=== PATIENT | female | born 1960 | race Caucasian/White ===

== ENCOUNTER 2017-03-04 01:32 | Emergency (ER) | payer OTHER ==
--- NOTE | 2017-03-04 01:52 | EDM.PDOC ---
ED HPI GENERAL MEDICAL PROBLEM - General Chief Complaint: Trauma Stated Complaint: FELL AT HOME Time Seen by Provider: 03/04/17 01:40 - History of Present Illness INITIAL COMMENTS - FREE TEXT/NARRATIVE: HISTORY AND PHYSICAL: History of present illness: Patient 56-year-old female presents status post fall down a flight of stairs this occurred with light was out she was given to go downstairs to go to bathroom she complains of mild headache neck pain left shoulder pain left knee pain and left toe pain she denies loss of consciousness he denies any chest or abdominal pain or trauma denies palpitations shortness of breath or other concern. Review of systems: As per history of present illness and below otherwise all systems reviewed and negative. Past medical history: As per history of present illness and as reviewed below otherwise noncontributory. Surgical history: As per history of present illness and as reviewed below otherwise noncontributory. Social history: No reported history of drug or alcohol abuse. Family history: As per history of present illness and as reviewed below otherwise noncontributory. Physical exam: HEENT: Atraumatic, normocephalic, pupils reactive, negative for conjunctival pallor or scleral icterus, mucous membranes moist, throat clear, c-collar in place trachea midline Lungs: Clear to auscultation, breath sounds equal bilaterally, chest nontender. Heart: S1S2, regular, negative for clicks, rubs, or JVD. Abdomen: Soft, nondistended, nontender. Negative for masses or hepatosplenomegaly. Negative for costovertebral tenderness. Pelvis: Stable nontender. Genitourinary: Deferred. Rectal: Deferred. Extremities: Patient has abrasion contusion to her left knee with mild tenderness no gross deformity joint is grossly stable left foot is without any gross deformities or point tenderness either left shoulder some mild tenderness over lateral deltoid region is no gross deformity neurovascular exam in [facility] are unremarkable throughout Neuro: Awake, alert, oriented. Cranial nerves II through XII unremarkable. Cerebellum unremarkable. Motor and sensory unremarkable throughout. Exam nonfocal. Diagnostics: CT brain C-spine x-ray left shoulder thoracic spine chest pelvis left knee and left foot Therapeutics: To be determined Impression: #1 observation status post fall #2 multiple blunt trauma with multiple abrasions /contusions #3 cervical strain #4 left shoulder injury #5 left knee/foot injury Definitive disposition and diagnosis as appropriate pending reevaluation and review of above. left side of the body Pain Score (Numeric/FACES): 9 - Related Data Allergies Allergy/AdvReac Type Severity Reaction Status Date / Time erythromycin base Allergy Vomiting Verified 03/04/17 01:39 latex Allergy Blisters Verified 03/04/17 01:39 pregabalin [From Lyrica] Allergy Vomiting Verified 03/04/17 01:39 tramadol Allergy Dizziness Verified 03/04/17 01:39 Home Meds: Home Meds DULoxetine [Cymbalta] 60 mg PO DAILY 07/21/14 [History] Estrogens,Conj.,Synthetic B [Enjuvia] 1 tab PO DAILY 07/21/14 [History] fentaNYL [Fentanyl] 1 patch TRDERM Q2D 07/21/14 [History] Estradiol [Climara] 1 patch TOP ASDIRECTED 03/26/15 [History] Hydrocodone/Acetaminophen [Hydrocodon-Acetaminophn 10-325] 1 tab PO Q6H [History] Progesterone,Micronized [Progesterone] 1 tab PO DAILY 03/26/15 [History] Past Medical History Other Gastrointestinal History: Constipation past 2 months - Past Surgical History Other Female Surgeries/Procedures: Draining of ovarian cysts, vaginal approach bilaterally Social & Family History - Tobacco Use Smoking Status *Q: Never Smoker Second Hand Smoke Exposure: No - Alcohol Use Days Per Week of Alcohol Use: 0 - Recreational Drug Use Recreational Drug Use: No Drug Use in Last 12 Months: No Review of Systems - Review of Systems Review Of Systems: ROS reveals no pertinent complaints other than HPI. ED EXAM, GENERAL - Physical Exam Exam: See Below (See dictation) Course - Vital Signs Last Recorded V/S: Last Vital Signs Temp 36.5 C 03/04/17 04:22 Pulse 61 03/04/17 04:22 Resp 18 03/04/17 04:22 BP 115/54 L 03/04/17 04:22 Pulse Ox 99 03/04/17 04:22 - Orders/Labs/Meds Orders: Active Orders 24 hr Category Date Time Status C-Spine [Cervical Spine wo Cont] [CT] Stat Exams 03/04/17 01:47 Taken Chest 2V [CR] Stat Exams 03/04/17 01:48 Taken Foot 2V Lt [CR] Stat Exams 03/04/17 01:48 Taken Head wo Cont [CT] Stat Exams 03/04/17 01:53 Taken Knee 1V or 2V Lt [CR] Stat Exams 03/04/17 01:48 Taken Pelvis 1V or 2V [CR] Stat Exams 03/04/17 01:48 Taken Shoulder Comp Lt [CR] Stat Exams 03/04/17 01:48 Taken Thoracic Spine 2V [CR] Stat Exams 03/04/17 01:48 Taken Meds: Medications Discontinued Medications Generic Name Dose Route Start Last Admin Trade Name Lavonne PRN Reason Stop Dose Admin Ketorolac Tromethamine 60 mg 03/04/17 03:29 03/04/17 03:34 Toradol IM 03/04/17 03:30 60 mg ONETIME ONE Administration Departure - Departure Time of Disposition: 05:25 Disposition: Home, Self-Care 01 Condition: Good Clinical Impression: Multiple trauma, Fall - Discharge Information Instructions: Contusion Referrals: PCP,None [Primary Care Provider] - Forms: ED Department Discharge Additional Instructions: The following information is given to patients seen in the emergency department who are being discharged to home. This information is to outline your options for follow-up care. We provide all patients seen in our emergency department with a follow-up referral. The need for follow-up, as well as the timing and circumstances, are variable depending upon the specifics of your emergency department visit. If you don't have a primary care physician on staff, we will provide you with a referral. We always advise you to contact your personal physician following an emergency department visit to inform them of the circumstance of the visit and for follow-up with them and/or the need for any referrals to a consulting specialist. The emergency department will also refer you to a specialist when appropriate. This referral assures that you have the opportunity for followup care with a specialist. All of these measure are taken in an effort to provide you with optimal care, which includes your followup. Under all circumstances we always encourage you to contact your private physician who remains a resource for coordinating your care. When calling for followup care, please make the office aware that this follow-up is from your recent emergency room visit. If for any reason you are refused follow-up, please contact the [facility] emergency department at and asked to speak to the emergency department charge nurse. Follow-up primary medical doctor 1-2 days Motrin/Tylenol as directed return as needed as discussed Care Plan Goals: tylenol or motrin for pain follow up with PCP cold compress - My Orders Last 24 Hours: My Active Orders 03/04/17 01:47 C-Spine [Cervical Spine wo Cont] [CT] Stat 03/04/17 01:48 Chest 2V [CR] Stat Foot 2V Lt [CR] Stat Knee 1V or 2V Lt [CR] Stat Pelvis 1V or 2V [CR] Stat Shoulder Comp Lt [CR] Stat Thoracic Spine 2V [CR] Stat 03/04/17 01:53 Head wo Cont [CT] Stat - Assessment/Plan Last 24 Hours: My Active Orders 03/04/17 01:47 C-Spine [Cervical Spine wo Cont] [CT] Stat 03/04/17 01:48 Chest 2V [CR] Stat Foot 2V Lt [CR] Stat Knee 1V or 2V Lt [CR] Stat Pelvis 1V or 2V [CR] Stat Shoulder Comp Lt [CR] Stat Thoracic Spine 2V [CR] Stat 03/04/17 01:53 Head wo Cont [CT] Stat
[2017-03-04] MEDS ORDERED: Ketorolac 60 MG/2 ML SDV IM ONE (03:29)
[2017-03-04 04:31] VITALS: BP 115/54
--- NOTE | 2017-03-05 16:00 | CT ---
EXAM DATE: 03/04/17 PATIENT'S AGE: 56 Patient: SHIKHA DUMONT Facility: [place], [place] Site . Site : 1960 Study: CT Head WO CONT [id number]/10/2017 2:36:34 AM Ordering Physician: Doctor Rdz Final Report: INDICATION: Fall down stairs TECHNIQUE: Head CT without contrast. COMPARISON: None FINDINGS: CSF spaces: Within normal limits for age. Brain parenchyma: The medellin-white junction is normal. No sign of mass, hemorrhage , or midline shift. Skull base and calvarium: The visualized paranasal sinuses and mastoid air cells demonstrate no acute or significant findings. The visualized orbits are grossly unremarkable. No skull fractures. IMPRESSION: No intracranial hemorrhage or skull fracture. Please note that all CT scans at this facility use dose modulation, iterative reconstruction, and/or weight-based dosing when appropriate to reduce radiation dose to as low as reasonably achievable. Dictated by Alice Bell MD @ Mar 04 2017 3:00AM (Electronic Signature) Report Signed by Proxy. CARLOS
--- NOTE | 2017-03-05 16:02 | CT ---
EXAM DATE: 03/04/17 PATIENT'S AGE: 56 Patient: SHIKHA DUMONT Facility: [place], [place] Site . Site : 1960 Study: CT Spine Cervical WO CONT [id number]/10/2017 2:36:53 AM Ordering Physician: Doctor Rdz Final Report: INDICATION: Fall down stairs TECHNIQUE: CT cervical spine without contrast. COMPARISON: None FINDINGS: Vertebral alignment: Alignment is normal. Vertebrae: There are no fractures or suspicious bony lesions. Discs and facet joints: There are mild multilevel degenerative disc and facet changes. Extraspinal findings: Paraspinous soft tissues are unremarkable. IMPRESSION: 1. No sign of acute injury. 2. Mild multilevel degenerative spondylosis. Please note that all CT scans at this facility use dose modulation, iterative reconstruction, and/or weight-based dosing when appropriate to reduce radiation dose to as low as reasonably achievable. Dictated by Alice Bell MD @ Mar 04 2017 3:05AM (Electronic Signature) Report Signed by Proxy. MTDD
--- NOTE | 2017-03-05 16:03 | CR ---
EXAM DATE: 03/04/17 PATIENT'S AGE: 56 Patient: SHIKHA DUMONT Facility: [place], [place] Site . Site : 1960 Study: XRay Pelvis [id number]/10/2017 2:45:20 AM Ordering Physician: Doctor Rdz Final Report: Indication: Fall down stairs Technique: Frontal view pelvis Comparison: None Findings: Bones: Alignment is normal. No fractures or bone lesions. Joint spaces: Unremarkable. Soft tissues: Unremarkable. Impression: Negative. Dictated by Alice Bell MD @ Mar 04 2017 3:06AM (Electronic Signature) Report Signed by Proxy. CARLOS
--- NOTE | 2017-03-05 16:04 | CR ---
EXAM DATE: 03/04/17 PATIENT'S AGE: 56 Patient: SHIKHA DUMONT Facility: [place], [place] Site . Site : 1960 Study: XRay Chest [id number]/10/2017 2:45:44 AM Ordering Physician: Doctor Rdz Final Report: INDICATION: Fall down stairs TECHNIQUE: Chest 2 views. COMPARISON: None FINDINGS: Cardiovascular and mediastinum: Heart size and vasculature are normal in caliber and appearance. Mediastinum is within normal limits. Lungs and pleural spaces: Lungs are clear. No sign of infiltrate or mass. No sign of pleural effusion. No pneumothorax. Bones and soft tissues: No significant findings. IMPRESSION: No sign of acute disease. Dictated by Alice Bell MD @ Mar 04 2017 3:06AM (Electronic Signature) Report Signed by Proxy. CARLOS
--- NOTE | 2017-03-05 16:05 | CR ---
EXAM DATE: 03/04/17 PATIENT'S AGE: 56 Patient: SHIKHA DUMONT Facility: [place], [place] Site . Site : 1960 Study: XRay Spine Thoracic [id number]/10/2017 2:46:05 AM Ordering Physician: Doctor Rdz Final Report: INDICATION: Fall down stairs TECHNIQUE: Thoracic spine 2 view. COMPARISON: None FINDINGS: Bones: Alignment is normal. No fractures or significant bone lesions. Joints: Mild multilevel degenerative changes. Soft tissues: Unremarkable. Surgical clips noted in the right upper quadrant. IMPRESSION: No thoracic spine fracture or subluxation. Dictated by Alice Bell MD @ Mar 04 2017 3:07AM (Electronic Signature) Report Signed by Proxy. CARLOS
--- NOTE | 2017-03-05 16:06 | CR ---
EXAM DATE: 03/04/17 PATIENT'S AGE: 56 Patient: SHIKHA DUMONT Facility: [place], [place] Site . Site : 1960 Study: XRay Knee Left [id number]/10/2017 2:46:30 AM Ordering Physician: Doctor Rdz Final Report: Indication: Fall down stairs, Technique: Two views left knee Comparison: None Findings: Bones: Alignment is normal. No fractures or bone lesions. Joint spaces: Unremarkable. Soft tissues: Unremarkable. Impression: Negative. Dictated by Alice Bell MD @ Mar 04 2017 3:09AM (Electronic Signature) Report Signed by Proxy. CARLOS
--- NOTE | 2017-03-05 16:08 | CR ---
EXAM DATE: 03/04/17 PATIENT'S AGE: 56 Patient: SHIKHA DUMONT Facility: [place], [place] Site . Site : 1960 Study: XRay Shoulder Left [id number]/10/2017 2:48:25 AM Ordering Physician: Juwan Steward Final Report: Indication: Fall down stairs Technique: Two views left shoulder Comparison: None Findings: Bones: Alignment is normal. No fractures or bone lesions. Joint spaces: Unremarkable. Soft tissues: Unremarkable. Impression: Negative. Dictated by Alice Bell MD @ Mar 04 2017 3:10AM (Electronic Signature) Report Signed by Proxy. CARLOS
--- NOTE | 2017-03-05 16:08 | CR ---
EXAM DATE: 03/04/17 PATIENT'S AGE: 56 Patient: SHIKHA DUMONT Facility: [place], [place] Site . Site : 1960 Study: XRay Extremity Left FOOT [id number]/10/2017 2:46:58 AM Ordering Physician: Doctor Rdz Final Report: Indication: Fall down stairs Technique: Two-view left foot. Comparison: None Findings: Bones: Alignment is normal. No fractures or bone lesions. There is a small posterior calcaneal enthesophyte. Joint spaces: Unremarkable. Soft tissues: Unremarkable. Impression: No acute abnormality. Dictated by Alice Bell MD @ Mar 04 2017 3:09AM (Electronic Signature) Report Signed by Proxy. CARLOS
== END 2017-03-04 04:22 | disposition home or self-care (01) ==
LOC: MW.ED 01:32
DX: S16.1XXA Strain of muscle, fascia and tendon at neck level, initial encounter (principal); S80.02XA Contusion of left knee, initial encounter; S49.92XA Unspecified injury of left shoulder and upper arm, initial encounter; Z88.1 Allergy status to other antibiotic agents; Z91.040 Latex allergy status; Z88.6 Allergy status to analgesic agent; Z88.8 Allergy status to other drugs, medicaments and biological substances; Z79.899 Other long term (current) drug therapy; W10.9XXA Fall (on) (from) unspecified stairs and steps, initial encounter
CPT/HCPCS: 70450; 71020; 72070; 72125; 72170; 73030; 73560; 73620; 96372; 99284; J1885; 99283

== ENCOUNTER 2022-10-09 09:43 | Emergency (ER) | payer BC ==
[2022-10-09] MEDS ORDERED: Sodium Chloride 0.9% 10 ML Syringe FLUSH PRN (09:48)
[2022-10-09] MEDS ORDERED: Sodium Chloride 0.9% 2.5 ML Syringe FLUSH PRN (09:48)
[2022-10-09] MEDS ORDERED: Morphine 2 MG/ML SYRINGE IVPUSH ONE (10:54)
[2022-10-09] MEDS ORDERED: Ondansetron 4 MG/2 ML SDV IVPUSH ONE (10:54)
[2022-10-09] MEDS ORDERED: Aspirin 81 MG Tab.Chew PO ONE (11:04)
[2022-10-09 11:58] LABS: CARBON DIOXIDE,CO2 27.1 mmol/L (21.0-32.0); POTASSIUM,K 4.1 mmol/L (3.5-5.1)
[2022-10-09 12:42] VITALS: BP 129/57; PULSE 57
== END 2022-10-09 12:45 | disposition home or self-care (01) ==
LOC: MW.ED 09:43
DX: R07.89 Other chest pain (principal); Z88.1 Allergy status to other antibiotic agents; Z91.040 Latex allergy status; Z88.5 Allergy status to narcotic agent; Z88.8 Allergy status to other drugs, medicaments and biological substances
CPT/HCPCS: 36415; 71045; 80053; 84443; 84484; 85025; 93005; 96374; 96375; 99285; A9270; J2270; J2405; J3490; 93010; 99284

== ENCOUNTER 2024-12-03 15:35 | Inpatient (IN) | payer BC, MEDICARE ==
[2024-12-03] MEDS: Sodium Chloride 0.9% 1,000 ML IV ONE (15:49)
[2024-12-03 15:58] LABS: BASOPHILS ABSOLUTE AUTO 0.02 K/uL (0.00-0.20); BASOPHILS PERCENT AUTO 0.4 % (0.0-1.0); EOSINOPHILS ABSOLUTE AUTO 0.05 K/uL (0.00-0.45); EOSINOPHILS PERCENT AUTO 0.9 % (0.0-6.0); HEMATOCRIT 37.9 % (37.0-47.0); HEMOGLOBIN 12.4 g/dL (12.0-16.0); IMMATURE GRAN ABSOLUTE AUTO 0.05 K/uL (0.00-0.05); IMMATURE GRAN PERCENT AUTO 0.9 % (0.0-0.4); LYMPHOCYTES PERCENT AUTO 46.2 % (24.0-44.0); MEAN CORPUSCULAR HEMOGLOBIN 31.5 pg (28.0-32.0); MEAN CORPUSCULAR HGB CONC 32.7 g/dL (32.0-36.0); MEAN CORPUSCULAR VOLUME 96.2 fL (83.0-99.0); MEAN PLATELET VOLUME 10.3 fL (9.4-12.3); MONOCYTES ABSOLUTE AUTO 0.35 K/uL (0.00-0.80); MONOCYTES PERCENT AUTO 6.2 % (0.0-8.0); NEUTROPHILS ABSOLUTE AUTO 2.56 K/uL (1.80-7.70); NEUTROPHILS PERCENT AUTO 45.4 % (41.0-71.0); PLATELET COUNT,PLT 274 K/uL (150-400); RED BLOOD CELL COUNT 3.94 M/uL (4.10-5.30); WHITE BLOOD CELL COUNT,WBC 5.63 K/uL (3.9-11.3)
[2024-12-03] MEDS ORDERED: Sodium Chloride 0.9% 10 ML Syringe FLUSH PRN (15:59)
[2024-12-03] MEDS ORDERED: Sodium Chloride 0.9% 20 ML SDV IV PRN (15:59)
[2024-12-03] MEDS ORDERED: Sodium Chloride 0.9% 2.5 ML Syringe FLUSH PRN (15:59)
[2024-12-03 16:08] LABS: INR 0.97 (0.86-1.11); PTT,PARTIAL THROMBOPLSTIN TIME 25.3 SEC (23.9-30.7)
[2024-12-03] MEDS: Iopamidol 755 MG/ML 500 ML Multipack Bottle IVPUSH STA (16:19)
[2024-12-03 16:30] LABS: A/G RATIO 1.1 (0.9-1.6); ALANINE AMINOTRANSFERASE,ALT 49 IU/L (14-63); ALBUMIN 3.8 g/dL (3.4-5.0); ALKALINE PHOSPHATASE 113 U/L (46-116); ASPARTATE AMNIOTRANSFERASE,AST 57 IU/L (15-37); BILIRUBIN TOTAL 0.3 mg/dL (0.2-1.0); BLOOD UREA NITROGEN,BUN 17 mg/dL (7.0-18.0); C-REACTIVE PROTEIN 0.13 mg/dL (<0.3); CARBON DIOXIDE,CO2 29.6 mmol/L (21.0-32.0); CHLORIDE,CL 101 mmol/L (98-107); CREATININE 0.8 mg/dL (0.6-1.0); EST CRCL DRUG DOSING (CG) 64.76 mL/min; GLUCOSE RANDOM 92 mg/dL (74-106); LIPASE 33 U/L (16-77); POTASSIUM,K 4.4 mmol/L (3.5-5.1); PROTEIN TOTAL,TP 7.2 g/dL (6.4-8.2); SODIUM,NA 137 mmol/L (136-145)
[2024-12-03 16:31] LABS: ESTIMATED GFR 81 mL/min (>60)
[2024-12-03] MEDS: Aspirin 81 MG Tab.Chew PO ONE (17:58)
[2024-12-03 18:26] LABS: APPEARANCE,URINE CLEAR; BILIRUBIN,URINE NEGATIVE (NEGATIVE); COLOR,URINE YELLOW; GLUCOSE,URINE NEGATIVE (NEGATIVE); KETONES,URINE NEGATIVE (NEGATIVE); LEUKOCYTE ESTERASE,URINE NEGATIVE (NEGATIVE); NITRITE,URINE NEGATIVE (NEGATIVE); OCCULT BLOOD,URINE NEGATIVE (NEGATIVE); PROTEIN,URINE NEGATIVE (NEGATIVE); UROBILINOGEN,URINE 0.2 EU/dL (<2.0)
[2024-12-04 05:49] LABS: BASOPHILS ABSOLUTE AUTO 0.04 K/uL (0.00-0.20); BASOPHILS PERCENT AUTO 0.8 % (0.0-1.0); EOSINOPHILS ABSOLUTE AUTO 0.08 K/uL (0.00-0.45); EOSINOPHILS PERCENT AUTO 1.5 % (0.0-6.0); HEMOGLOBIN 11.7 g/dL (12.0-16.0); IMMATURE GRAN ABSOLUTE AUTO 0.01 K/uL (0.00-0.05); IMMATURE GRAN PERCENT AUTO 0.2 % (0.0-0.4); LYMPHOCYTES ABSOLUTE AUTO 2.71 K/uL (1.00-4.80); LYMPHOCYTES PERCENT AUTO 51.1 % (24.0-44.0); MEAN CORPUSCULAR HEMOGLOBIN 31.3 pg (28.0-32.0); MEAN CORPUSCULAR HGB CONC 32.5 g/dL (32.0-36.0); MEAN CORPUSCULAR VOLUME 96.3 fL (83.0-99.0); MEAN PLATELET VOLUME 10.2 fL (9.4-12.3); MONOCYTES ABSOLUTE AUTO 0.38 K/uL (0.00-0.80); MONOCYTES PERCENT AUTO 7.2 % (0.0-8.0); NEUTROPHILS ABSOLUTE AUTO 2.08 K/uL (1.80-7.70); NEUTROPHILS PERCENT AUTO 39.2 % (41.0-71.0); PLATELET COUNT,PLT 266 K/uL (150-400); RED BLOOD CELL COUNT 3.74 M/uL (4.10-5.30)
[2024-12-04 06:08] LABS: CALCIUM 8.8 mg/dL (8.5-10.1); CARBON DIOXIDE,CO2 28.4 mmol/L (21.0-32.0); CREATININE 0.7 mg/dL (0.6-1.0); EST CRCL DRUG DOSING (CG) 74.01 mL/min; POTASSIUM,K 3.9 mmol/L (3.5-5.1)
[2024-12-04] MEDS: Gadoteridol 279.3 MG/ML 20 ML SDV IVPUSH ONE (08:32)
[2024-12-04] MEDS ORDERED: Clopidogrel 75 MG Tab PO SCH (10:30)
[2024-12-04] MEDS: Aspirin 81 MG Tab.Chew PO SCH (10:34)
[2024-12-04 11:06] VITALS: PULSE 54
[2024-12-04] MEDS: DULoxetine 60 MG Cap PO SCH (11:16)
[2024-12-04] MEDS: Acetaminophen 325 MG Tab PO PRN (11:16)
[2024-12-04] MEDS: Ezetimibe 10 MG Tab PO SCH (11:16)
[2024-12-04] MEDS: buPROPion 150 MG Tab.ER PO SCH (11:32)
[2024-12-04 12:57] VITALS: BP 116/61
== END 2024-12-04 12:57 | disposition home or self-care (01) | DRG 92 ==
LOC: MW.ED 15:35 → MW.MS 17:29
PROVIDERS: ADMIT Internal Medicine; ATTEND Internal Medicine
DX: R20.2 Paresthesia of skin (principal); Q00-Q99 Congenital malformations, deformations and chromosomal abnormalities; G62.9 Polyneuropathy, unspecified; F32.A Depression, unspecified; Z90.49 Acquired absence of other specified parts of digestive tract; Z90.710 Acquired absence of both cervix and uterus; R20.0 Anesthesia of skin; R51.9 Headache, unspecified; Z91.040 Latex allergy status; Z98.890 Other specified postprocedural states; Z88.0 Allergy status to penicillin; Z88.1 Allergy status to other antibiotic agents; Z88.8 Allergy status to other drugs, medicaments and biological substances; Z79.899 Other long term (current) drug therapy
CPT/HCPCS: 36415; 70450; 70496; 70498; 80053; 80061; 83036; 83690; 83735; 84484; 85025; 85610; 85652; 85730; 86140; 93005; 96360; 99285; J7030; Q9967; 70553; 70553-26; 80048; 81003; 93010; 93306; 99232; 99238; A9270-GY; A9579